=== PATIENT | female | born 2000 | race Caucasian/White ===

== ENCOUNTER 2021-12-25 14:13 | Emergency (ER) | payer OTHER ==
[2021-12-25 14:43] LABS: HEMOGLOBIN 13.7 gm/dl (12.3-15.3); RED BLOOD COUNT 4.92 M/UL (4.00-5.10); WHITE BLOOD COUNT 6.8 K/UL (4.5-11.0)
[2021-12-25 15:08] LABS: BUN/CREATININE RATIO 9 (0-10)
[2021-12-25] MEDS ORDERED: IBU600 MG PO (19:21)
== END 2021-12-25 19:37 | disposition home or self-care (01) ==
LOC: ER1 14:13
PROVIDERS: Physician Assistant
DX: R07.9 Chest pain, unspecified (principal); M25.511 Pain in right shoulder; F17.200 Nicotine dependence, unspecified, uncomplicated; Z86.16 Personal history of COVID-19
CPT/HCPCS: 80053; 82550; 82553; 83874; 84484; 84703; 85025; 85379; 93005; 99285; Q9967